=== PATIENT | female | born 1995 | race Caucasian/White ===

== ENCOUNTER 2016-12-29 23:44 | Emergency (ER) | payer SELFPAY ==
[2016-12-30] MEDS ORDERED: Ketorolac 30 MG/ML SDV IM ONE (00:12)
[2016-12-30] MEDS ORDERED: Sodium Chloride 0.9% 2.5 ML Syringe FLUSH PRN (00:12)
[2016-12-30] MEDS ORDERED: Sodium Chloride 0.9% 1,000 ML IV SCH (00:15)
--- NOTE | 2016-12-30 00:28 | EDM.PDOC ---
ED HPI GI/ABDOMINAL - General Chief Complaint: Abdominal Pain Stated Complaint: ABDOMINAL PAIN Time Seen by Provider: 12/29/16 23:47 Source of Information: Reports: Patient History Limitations: Reports: No limitations - History of Present Illness INITIAL COMMENTS - FREE TEXT/NARRATIVE: HISTORY AND PHYSICAL: History of present illness: [] 21-year-old female with one-day history of right upper quadrant abdominal pain. Pain waxes and wanes. No fevers chills sweats or shaking chills. No vomiting or diarrhea. Pain is right under the rib margin, patient points at this spot. She has not had a cholecystectomy. She has no history of kidney stones. 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 Patient has no flank pain or right lower quadrant pain. No pain below the bellybutton by her description Review of systems: As per history of present illness and below otherwise all systems reviewed and negative. Past medical history: As per history of present illness and as reviewed below otherwise noncontributory. Surgical history: As per history of present illness and as reviewed below otherwise noncontributory. Social history: No reported history of drug or alcohol abuse. Family history: As per history of present illness and as reviewed below otherwise noncontributory. Physical exam: HEENT: Atraumatic, normocephalic, pupils reactive, negative for conjunctival pallor or scleral icterus, mucous membranes moist, throat clear, neck supple, nontender, trachea midline. Lungs: Clear to auscultation, breath sounds equal bilaterally, chest nontender. Heart: S1S2, regular, negative for clicks, rubs, or JVD. Abdomen: Soft, nondistended, nontender. Negative for masses or hepatosplenomegaly. Negative for costovertebral tenderness. Pelvis: Stable nontender. Genitourinary: Deferred. Rectal: Deferred. Extremities: Atraumatic, negative for cords or calf pain. Neurovascular unremarkable. Neuro: Awake, alert, oriented. Cranial nerves II through XII unremarkable. Cerebellum unremarkable. Motor and sensory unremarkable throughout. Exam nonfocal. Diagnostics: [] Therapeutics: [] Impression: [] Plan: [] Definitive disposition and diagnosis as appropriate pending reevaluation and review of above. - Related Data Allergies/ADRs: Allergies Allergy/AdvReac Type Severity Reaction Status Date / Time morphine AdvReac Hives Verified 12/30/16 00:04 Home Meds: Home Meds . [No Known Home Meds] 12/30/16 [History] Past Medical History PATIENT SERVICES MANAGER History: Reports: - Past Surgical History GI Surgical History: Reports: Appendectomy Female Surgical History: Reports: section Social & Family History - Family History Family Medical History: Noncontributory - Tobacco Use Smoking Status *Q: Never Smoker Second Hand Smoke Exposure: No - Caffeine Use Caffeine Use: Reports: None - Recreational Drug Use Recreational Drug Use: No ED ROS GENERAL - Review of Systems Review Of Systems: See Below (Per history of present illness) ED EXAM, GI/ABD - Physical Exam Exam: See Below (Her history of present illness) Course - Vital Signs Text/Narrative:: Signs and symptoms consistent with possible gallbladder disease in a patient without a history of biliary issues. Has normal bowel and bladder habits. He has no CVA tenderness or fever. Pain and tenderness on the right rib margin. Labs completely unremarkable with normal LFTs. Ultrasound of the right upper quadrant shows no stones no wall thickening or pericholecystic fluid and a normal common bile duct of 5 mm. We'll [place] comment cannot rule out the possibility of a cold bile duct stone however patient with normal LFTs and no laboratory or radiographic signs of obstruction. Patient is comfortable after treatment with stable vital signs which are unremarkable she continues to be afebrile. Case discussed with surgery software engineer web applications Dr. Krupa Allen, is aware of history and findings and recommends outpatient followup Saturday morning for reevaluation and to arrange HIDA scan patient stable and agrees with outpatient followup. She is aware the possibility of occult will gallbladder disease in the need for more workup. She is aware to return immediately for new severe or worsening symptoms. Strict return precautions given Last Recorded V/S: Last Vital Signs Temp 36.6 C 12/30/16 03:45 Pulse 94 12/30/16 03:45 Resp 17 12/30/16 03:45 BP 100/76 12/30/16 03:45 Pulse Ox 94 L 12/30/16 03:45 - Orders/Labs/Meds Orders: Active Orders 24 hr Category Date Time Status Abdomen Ltd [US] Stat Exams 12/30/16 00:13 Taken Peripheral IV Insertion Adult [OM.PC] Stat Oth 12/30/16 00:12 Ordered Labs: Laboratory Tests 12/30/16 12/30/16 12/30/16 Range/Units 00:00 00:15 00:15 WBC 10.99 (4.0-11.0) K/uL RBC 4.53 (4.30-5.90) M/uL Hgb 12.5 (12.0-16.0) g/dL Hct 39.3 (36.0-46.0) % MCV 86.8 (80.0-98.0) fL MCH 27.6 (27.0-32.0) pg MCHC 31.8 (31.0-37.0) g/dL RDW Std Deviation 52.8 (28.0-62.0) fl RDW Coeff of Vicki 17 H (11.0-15.0) % Plt Count 313 (150-400) K/uL MPV 8.80 (7.40-12.00) fL Neut % (Auto) 55.2 (48.0-80.0) % Lymph % (Auto) 34.9 (16.0-40.0) % [place] % (Auto) 6.6 (0.0-15.0) % Eos % (Auto) 2.9 (0.0-7.0) % Baso % (Auto) 0.4 (0.0-1.5) % Neut # 6.1 H (1.4-5.7) K/uL Lymph # 3.8 H (0.6-2.4) K/uL [place] # 0.7 (0.0-0.8) K/uL Eos # 0.3 (0.0-0.7) K/uL Baso # 0.0 (0.0-0.1) K/uL Nucleated RBC % 0.0 /100WBC Nucleated RBCs # 0 K/uL Sodium 141 (136-146) mmol/L Potassium 3.3 L (3.5-5.1) mmol/L Chloride 108 (98-110) mmol/L Carbon Dioxide 23 (21-31) mmol/L BUN 15 (6.0-23.0) mg/dL Creatinine 0.7 (0.6-1.5) mg/dL Est Cr Clr Drug Dosing 90.55 mL/min Estimated GFR (MDRD) > 60.0 ml/min Glucose 91 (60-110) mg/dL Calcium 8.9 (8.8-10.8) mg/dL Total Bilirubin 0.4 (0.1-1.5) mg/dL AST 20 (5-40) IU/L ALT 15 (8-54) IU/L Alkaline Phosphatase 95 (40-150) Total Protein 8.3 H (6.0-8.0) g/dL Albumin 4.2 (3.5-5.0) g/dL Globulin 4.1 H (2.0-3.5) g/dL Albumin/Globulin Ratio 1.0 L (1.3-2.8) Lipase 30 (7-80) U/L Urine HCG, Qual NEGATIVE (NEGATIVE) Meds: Medications Discontinued Medications Generic Name Dose Route Start Last Admin Trade Name Freq PRN Reason Stop Dose Admin Hydromorphone HCl 0.5 mg 12/30/16 01:59 12/30/16 02:05 Dilaudid IM 12/30/16 02:00 0.5 mg ONETIME ONE Administration Sodium Chloride 1,000 mls @ 999 mls/hr 12/30/16 00:15 12/30/16 00:29 Normal Saline IV 999 mls/hr ASDIRECTED CHARY Administration Ketorolac Tromethamine 30 mg 12/30/16 00:12 12/30/16 00:35 Toradol IM 12/30/16 00:13 Not Given ONETIME ONE Ketorolac Tromethamine 30 mg 12/30/16 00:33 12/30/16 00:34 Toradol IVPUSH 12/30/16 00:34 30 mg ONETIME ONE Administration Sodium Chloride 10 ml 12/30/16 00:12 12/30/16 02:07 Saline Flush FLUSH 10 ml ASDIRECTED PRN Administration Keep Vein Open Sodium Chloride 2.5 ml 12/30/16 00:12 12/30/16 00:30 Saline Flush FLUSH 2.5 ml ASDIRECTED PRN Administration Keep Vein Open Departure - Departure Time of Disposition: 03:37 Disposition: Home, Self-Care 01 Condition: good Clinical Impression: Right upper quadrant abdominal pain Instructions: Abdominal Pain, Adult, [id number] Referrals: PCP,None [Primary Care Provider] - Forms: ED Department Discharge Additional Instructions: The location of your pain is suggestive of the possibility of gallbladder problems. Your ultrasound did not show any gallstones. There is no evidence of obstruction in your bile system. There is no inflammation of your gallbladder. Your liver enzymes were completely normal and the remainder of her labs were also unremarkable. Followup with the surgeon Dr. Krupa Allen Saturday morning for reevaluation and to arrange an HIDA scan for further workup to rule out a hidden stone in your bile duct. Return immediately for new severe or worsening symptoms and especially for fever with worsening abdominal pain. - My Orders Last 24 Hours: My Active Orders 12/30/16 00:12 Peripheral IV Insertion Adult [OM.PC] Stat 12/30/16 00:13 Abdomen Ltd [US] Stat - Assessment/Plan Last 24 Hours: My Active Orders 12/30/16 00:12 Peripheral IV Insertion Adult [OM.PC] Stat 12/30/16 00:13 Abdomen Ltd [US] Stat
[2016-12-30] MEDS ORDERED: Ketorolac 30 MG/ML SDV IVPUSH ONE (00:33)
[2016-12-30] MEDS: Sodium Chloride 0.9% 10 ML Syringe FLUSH PRN ×2 (00:35→02:07)
[2016-12-30 00:48] LABS: CHLORIDE,CL 108 mmol/L (98-110); SODIUM,NA 141 mmol/L (136-146)
[2016-12-30] MEDS ORDERED: HYDROmorphone 1 MG/ML Syringe IM ONE (01:59)
[2016-12-30 03:55] VITALS: BP 100/76
--- NOTE | 2016-12-31 18:01 | US ---
EXAM DATE: 12/29/16 PATIENT'S AGE: 21 Patient: JORGE MATHIAS Facility: [facility] [place], [place] Site . Site : 1995 Study: US Abdomen [id number] 1:26:18 AM Ordering Physician: Walter Vazquez Final Report: INDICATION: Right upper quadrant TECHNIQUE: Ultrasound abdomen limited. Sonographic images of the right upper quadrant were obtained using chandler-scale and color Doppler images. COMPARISON: None FINDINGS: Liver: Normal in size and echotexture. No masses. No intrahepatic biliary dilatation. Gallbladder: No stones or sludge. Normal wall thickness. No pericholecystic fluid. Sonographic Early`s sign is positive. Common bile duct: 5 mm. Pancreas: Normal. Right kidney: 11.1 x 3.1 x 5.2 cm. Normal echotexture and cortex. No masses, stones, or hydronephrosis. Vasculature: Proximal abdominal aorta and IVC are normal. IMPRESSION: Mildly dilated common bile duct. Positive Early`s sign. A common bile duct stone cannot be excluded. No evidence for acute cholecystitis. MRCP may be useful for further evaluation. Dictated by Reanna Hutchison MD @ Dec 30 2016 1:30AM (Electronic Signature) Report Signed by Proxy and Original Signed Document filed in the Medical Record. MTDD
== END 2016-12-30 03:53 | disposition home or self-care (01) ==
LOC: MW.ED 23:44
DX: R10.11 Right upper quadrant pain (principal); Z88.5 Allergy status to narcotic agent; Z90.49 Acquired absence of other specified parts of digestive tract; Z98.890 Other specified postprocedural states
CPT/HCPCS: 76705; 80053; 81025; 83690; 85025; 96372; 96374; 99284; J1170; J1885; J7040